=== PATIENT | female | born 1990 | race African-American/Black ===

== ENCOUNTER 2019-02-12 10:06 | Emergency (ER) | payer SELFPAY ==
[2019-02-12 10:12] VITALS: BP 144/67
--- NOTE | 2019-02-12 10:27 | ER Document Report ---
HPI - HPI Time Seen by Provider: 02/12/19 10:18 Pain Level: 2 Notes: Patient is an otherwise healthy 29-year-old female presents emergency room chief complaint of dental pain. Patient reports pain around teeth #17, 18 and 19. She reports throbbing pain has been present for approximately 1 month. She denies any drainage from the area and denies any fevers. She does not live in this town and states lives in [place] and does not have a dentist. - REPRODUCTIVE Reproductive: DENIES: : Past Medical History - General Information source: Patient - Social History Smoking Status: Current Some Day Smoker Frequency of alcohol use: None Drug Abuse: None Family History: Reviewed & Not Pertinent - Medical History Medical History: Negative Surgical Hx: Negative - Immunizations Immunizations up to date: Yes Vertical Provider Document - CONSTITUTIONAL Notes: PHYSICAL EXAMINATION: GENERAL: Well-appearing, well-nourished and in no acute distress. HEAD: Atraumatic, normocephalic. EYES: Pupils equal round extraocular movements intact, conjunctiva are normal. ENT: Nares patent, no obvious drainable abscess noted, slight erythema noted around tooth #18 and 19. NECK: Normal range of motion LUNGS: No respiratory distress Musculoskeletal: Normal range of motion NEUROLOGICAL: Normal speech, normal gait. PSYCH: Normal mood, normal affect. SKIN: Warm, Dry, normal turgor, no rashes or lesions noted. Course - Re-evaluation Re-evalutation: At the time of my initial evaluation patient does not appear to be in any acute distress. She is eating [place] fries as I enter the room. She appears to have mild erythema at the gumline around tooth #18 and 19. There is no drainable abscess identified. She will be discharged home on penicillin with instructions to follow-up with her dentist. The patient's emergency department workup and current diagnosis were explained to the patient and or family. Follow-up instructions were provided. Medications if prescribed were discussed. Instructions for when to return to the emergency department including specific worrisome symptoms were discussed with the patient and/or family. - Vital Signs Vital signs: Temp Pulse Resp BP Pulse Ox 98.3 F 75 18 144/67 H 99 02/12/19 10:12 02/12/19 10:12 02/12/19 10:12 02/12/19 10:12 02/12/19 10:12 Discharge - Discharge Clinical Impression: Pain, dental Condition: Stable Disposition: HOME, SELF-CARE Additional Instructions: You have been seen for dental pain. It is very important that you follow-up with a dentist for definitive care. Please return if you develop fever greater than 101, swelling in your face, vomiting, difficulty breathing or swallowing, or any other symptoms that are concerning to you. For pain you should take ibuprofen 600 mg every 6 hours as needed. Take the antibiotic as prescribed, finish the entire course of antibiotics even if your pain goes away. Prescriptions: Penicillin V Potassium [Penicillin Vk 500 mg Tablet] 500 mg PO BID #20 tablet
== END 2019-02-12 10:30 | disposition home or self-care (01) ==
LOC: ER 10:06
DX: K08.9 Disorder of teeth and supporting structures, unspecified (principal); F17.200 Nicotine dependence, unspecified, uncomplicated
CPT/HCPCS: 99282